=== PATIENT | female | born 2000 | race African-American/Black ===

== ENCOUNTER 2022-10-23 10:55 | Emergency (ER) | payer SELFPAY ==
[2022-10-23] MEDS ORDERED: Iopamidol-370 76% 500 ML MDV (1 ML CHARGE) ONE (12:38)
[2022-10-23] MEDS ORDERED: Metoclopramide HCl 10 MG/2 ML VIAL ONE (12:45)
[2022-10-23] MEDS ORDERED: Acetaminophen 500 MG TAB ONE (12:45)
[2022-10-23] MEDS ORDERED: diphenhydrAMINE 50 MG/ML VIAL ONE (12:45)
== END 2022-10-23 13:55 | disposition home or self-care (01) ==
LOC: ERS 10:55
DX: R51.9 Headache, unspecified (principal); F17.290 Nicotine dependence, other tobacco product, uncomplicated
CPT/HCPCS: 70496; 70498; 96365; 96375; J1200; J2765; Q9967